=== PATIENT | female | born 1990 | race Caucasian/White ===

== ENCOUNTER 2016-12-03 16:00 | Observation (INO) | payer OTHER ==
[~2016-12-03 16:00] MED LIST: FLEXERIL10 MG PO; SPRINTEC1 TAB PO
[2016-12-03] MEDS ORDERED: PRENA1 CHEW TA1.4 M1 PO (16:44)
== END 2016-12-03 17:25 ==
LOC: LDR 16:00
PROVIDERS: ADMIT Specialist
DX: O36.8130 Decreased fetal movements, third trimester, not applicable or unspecified (principal); Z3A.31 31 weeks gestation of pregnancy; Z79.899 Other long term (current) drug therapy

== ENCOUNTER 2017-01-07 17:57 | Observation (INO) | payer OTHER ==
[~2017-01-07 17:57] MED LIST changes: +PRENA1 CHEW TA1.4 M1 PO
== END 2017-01-07 19:34 ==
LOC: LDR 17:57
PROVIDERS: ADMIT Specialist
DX: Z03.71 Encounter for suspected problem with amniotic cavity and membrane ruled out (principal); Z3A.36 36 weeks gestation of pregnancy; Z87.891 Personal history of nicotine dependence

== ENCOUNTER 2017-01-29 06:44 | Inpatient (IN) | payer OTHER ==
[2017-01-29] MEDS ORDERED: IRON18 M1 PO (07:40)
[2017-01-29 08:04] LABS: BASO % 0.4 % (0-2); EOS % 2.9 % (0-7); EOSINOPHIL ABSOLUTE COUNT 0.3 tho/cmm (0.0-0.7); HCT-HEMATOCRIT 31.7 % (34.0-49.0); IMMATURE GRANULOCYTES ABSOLUTE 0.05 tho/cmm (0-0.03); IMMATURE GRANULOCYTES PERCENT 0.6 % (0-0.3); LYMPH % 24.1 % (20-45); LYMPH ABSOLUTE COUNT 2.1 tho/cmm (0.8-4.5); MCH (MEAN CORPUSCULAR HGB) 25.8 pg (28.0-32.0); MCHC MEAN CORPUSCULAR HGB CONC 31.5 % (32.0-36.0); MCV (MEAN CELL VOLUME) 81.9 fl (82.0-96.0); MEAN PLATELET VOLUME 10.2 cmc (9.4-12.4); MONO % 10.1 % (0-12); MONOCYTE ABSOLUTE COUNT 0.9 tho/cmm (0.0-1.2); NEUTROPHIL ABSOLUTE COUNT 5.5 tho/cmm (1.6-8.0); NEUTROPHIL-AUTOMATED 5.5 tho/cmm (1.6-8.0); NEUTROPHILS % 61.9 % (40-80); PLATELET COUNT 275 tho/cmm (150-450); RED BLOOD COUNT 3.87 mil/cmm (4.00-5.20); RED CELL DISTRIBUTION WIDTH 17.3 % (12.4-16.4); WHITE BLOOD COUNT 8.9 tho/cmm (4.0-10.0)
[2017-01-29 21:45] LABS: CORD BLOOD PH ARTERIAL 7.34 Units (7.18-7.38)
[2017-01-30 10:17] LABS: BASO % 0.1 % (0-2); EOS % 0.6 % (0-7); EOSINOPHIL ABSOLUTE COUNT 0.1 tho/cmm (0.0-0.7); HCT-HEMATOCRIT 28.2 % (34.0-49.0); HGB-HEMOGLOBIN 9.1 gm/dl (12.0-15.5); IMMATURE GRANULOCYTES ABSOLUTE 0.07 tho/cmm (0-0.03); IMMATURE GRANULOCYTES PERCENT 0.3 % (0-0.3); LYMPH % 10.2 % (20-45); LYMPH ABSOLUTE COUNT 2.1 tho/cmm (0.8-4.5); MCH (MEAN CORPUSCULAR HGB) 26.3 pg (28.0-32.0); MCHC MEAN CORPUSCULAR HGB CONC 32.3 % (32.0-36.0); MCV (MEAN CELL VOLUME) 81.5 fl (82.0-96.0); MEAN PLATELET VOLUME 10.1 cmc (9.4-12.4); MONO % 6.5 % (0-12); MONOCYTE ABSOLUTE COUNT 1.3 tho/cmm (0.0-1.2); NEUTROPHIL ABSOLUTE COUNT 16.7 tho/cmm (1.6-8.0); NEUTROPHIL-AUTOMATED 16.7 tho/cmm (1.6-8.0); NEUTROPHILS % 82.3 % (40-80); PLATELET COUNT 279 tho/cmm (150-450); RED BLOOD COUNT 3.46 mil/cmm (4.00-5.20); RED CELL DISTRIBUTION WIDTH 17.6 % (12.4-16.4)
[2017-01-30 10:20] LABS: WHITE BLOOD COUNT 20.3 tho/cmm (4.0-10.0)
[2017-01-31] MEDS ORDERED: IBUPROFEN800 M1 PO (11:02)
[2017-01-31] MEDS ORDERED: NORCO 5-325 TA1 EACH PO (11:05)
== END 2017-01-31 12:55 | DRG 775 ==
LOC: LDR 06:44 → OBGE 23:46
PROVIDERS: ADMIT Specialist
PROC: 10E0XZZ Delivery of Products of Conception, External Approach (ICD-10-PCS; principal; 2017-01-29)
PROC: 10907ZC Drainage of Amniotic Fluid, Therapeutic from Products of Conception, Via Natural or Artificial Opening (ICD-10-PCS; 2017-01-29)
PROC: 4A1H7CZ Monitoring of Products of Conception, Cardiac Rate, Via Natural or Artificial Opening (ICD-10-PCS; 2017-01-29)
PROC: 3E033VJ Introduction of Other Hormone into Peripheral Vein, Percutaneous Approach (ICD-10-PCS; 2017-01-29)
PROC: 0W8NXZZ Division of Female Perineum, External Approach (ICD-10-PCS; 2017-01-29)
DX: O66.0 Obstructed labor due to shoulder dystocia (principal); Z37.0 Single live birth; Z3A.39 39 weeks gestation of pregnancy
CPT/HCPCS: J2590